=== PATIENT | male | born 1970 | race Caucasian/White ===

== ENCOUNTER 2018-11-02 09:02 | Outpatient (CLI) | payer BC ==
--- NOTE | 2018-11-02 10:10 | MRI ---
MRI Cervical Spine WO Con History: R 20.2 paresthesia. Pain of extremity Comparison: None. Findings: Cerebral tonsils terminate at the level of the foramen magnum. No marrow infiltrative proce ss. Cord signal is normal. Paraspinal soft tissues are unremarkable. Paraspinal musculature is normal. Levels are as follows: C2/C3: Mild disc desiccation. Mild uncinate process hypertrophy. Small bilateral subsequent foraminal posterior disc osteophyte complexes. Mild bilateral neural foraminal narrowing. C3/C4: Mild disc desiccation. Broad-based posterior disc osteophyte complex. Moderate facet arthrosis . Minimal effacement of the ventral CSF space. Moderate bilateral neural foraminal narrowing. C4/C5: Mild bilateral subsequent foraminal posterior disc osteophyte complexes. Moderate right and mi ld left facet arthropathy. Moderate right and mild left neural foraminal narrowing. C5/C6: Broad-based posterior disc osteophyte complex, greatest in the central zone. Mild effacement o f ventral CSF space with spinal canal narrowing to approximately 9 mm. Mild facet arthropathy. Moderate left and mild right neural foraminal narrowing. C6/C7: Mild disc desiccation. Right lateral recess and subsequent foraminal posterior disc extrusion causing moderate to severe right neural foraminal narrowing and some rightward displacement of the transverse dimension of the thecal sac. There is effacement of ventral CSF space and spinal canal fanta rowing to approximately 9 mm. C7/T1: Low-grade disc desiccation. Low-grade unstable process hypertrophy. Moderate hypertrophic face t changes. Mild bilateral neural foraminal narrowing. Impression: Multilevel [id number] spondylosis as described, greatest at C6/C7 for which there i s a right posterior disc extrusion causing neural foraminal and spinal canal narrowing.
== END 2018-11-02 09:03 | disposition home or self-care (01) ==
LOC: BICMRI 09:02
PROVIDERS: ATTEND Physician Assistant
DX: M54.2 Cervicalgia (principal); R20.2 Paresthesia of skin; M47.812 Spondylosis without myelopathy or radiculopathy, cervical region; M50.223 Other cervical disc displacement at C6-C7 level; M48.02 Spinal stenosis, cervical region
CPT/HCPCS: 72141

== ENCOUNTER 2019-04-21 12:45 | Outpatient (CLI) | payer BC ==
--- NOTE | 2019-04-21 12:59 | RAD ---
EXAM: Chest Two Views 04/21/2019 12:57 PM HISTORY: Dyspnea COMPARISON: July 30, 2018 FINDINGS: Heart: Normal in size and contour. Pulmonary vessels: Normal. Costophrenic angles: Clear. Lungs: No acute airspace consolidation. Pneumothorax: None. Osseous structures:Intact. Additional findings: None. IMPRESSION: No significant acute intrathoracic disease.
== END 2019-04-21 12:46 | disposition home or self-care (01) ==
LOC: RAD 12:45
PROVIDERS: ATTEND Internal Medicine Pulmonary Disease
DX: R06.00 Dyspnea, unspecified (principal)
CPT/HCPCS: 71046

== ENCOUNTER 2023-02-11 09:15 | Outpatient (CLI) | payer BC | END 2023-02-11 09:16 | disposition home or self-care (01) | LOC: RAD 09:15 | PROVIDERS: ATTEND Family Medicine | DX: M19.041 Primary osteoarthritis, right hand (principal); M19.042 Primary osteoarthritis, left hand ==